=== PATIENT | male | born 1960 | race Caucasian/White ===

== ENCOUNTER 2018-03-17 19:25 | Inpatient (IN) | payer OTHER ==
[~2018-03-17] VITALS: Ht 167.6 cm; Wt 61.8 kg
[2018-03-17] MEDS ORDERED: ALBUTEROL SULFATE 2.5 MG/3 ML ONE (19:45)
[2018-03-17] MEDS ORDERED: ALBUTEROL/IPRATROPIUM 2.5MG/0.5MG, 3 ML ONE (19:45)
[2018-03-17 19:52] LABS: BASOPHILS # (AUTO) 0.03 x10^3/uL (0-0.1); BASOPHILS % (AUTO) 1 % (0-1); EOSINOPHILS # (AUTO) 0.49 x10^3/uL (0-0.4); EOSINOPHILS % (AUTO) 7 % (1-7); LYMPHOCYTES # (AUTO) 2.17 x10^3/uL (1-3.4); LYMPHOCYTES % (AUTO) 29 % (22-44); MD NO; MEAN CORPUSCULAR HEMOGLOBIN 29.1 pg (27.5-34.5); MEAN CORPUSCULAR HGB CONC 33.3 g/dL (33.2-36.2); MEAN CORPUSCULAR VOLUME 87.3 fL (81-97); MEAN PLATELET VOLUME 8.9 fL (7.4-10.4); MONOCYTES # (AUTO) 0.65 x10^3/uL (0.2-0.8); MONOCYTES % (AUTO) 9 % (2-9); NEUTROPHILS # (AUTO) 4.11 x10^3/uL (1.8-6.8); NEUTROPHILS % (AUTO) 55 % (42-75); PLATELET COUNT 331 x10^3/uL (130-400); RED BLOOD COUNT 4.36 x10^6/uL (4.38-5.82); RED CELL DISTRIBUTION WIDTH 14.7 % (9.4-14.8)
[2018-03-17 20:03] LABS: ALBUMIN 2.8 g/dL (3.4-5.0); ANION GAP 9 mmol/L (5-15); CALCIUM 7.9 mg/dL (8.5-10.1); CHLORIDE 106 mmol/L (98-107)
[2018-03-17 20:09] LABS: ALANINE AMINOTRANSFERASE 27 U/L (12-78); ALKALINE PHOSPHATASE 70 U/L (45-117); BILIRUBIN,TOTAL 0.5 mg/dL (0.2-1.0); CREATININE 0.86 mg/dL (0.7-1.3); TOTAL PROTEIN 7.3 g/dL (6.4-8.2)
[2018-03-17] MEDS ORDERED: CEFTRIAXONE PMX 1GM/50ML 50 ML IV ONE (21:30)
[2018-03-17] MEDS ORDERED: AZITHROMYCIN 500 MG in SODIUM CHLORIDE 0.9% 250 ML IV ONE (21:30)
[2018-03-17] MEDS ORDERED: CEFTRIAXONE PMX 1GM/50ML 50 ML ONE (21:31)
[2018-03-17] MEDS ORDERED: POTASSIUM CHLORIDE 20 MEQ TAB.ER.PRT PO ONE (22:30)
[2018-03-17] MEDS ORDERED: NS + 20MEQ KCL 1,000 ML IV SCH (22:40)
[2018-03-17] MEDS ORDERED: POTASSIUM CHLORIDE 20 MEQ TAB.ER.PRT ONE (22:49)
[2018-03-17] MEDS ORDERED: morphine SULFATE 10 MG/ML, 1ML IVPush PRN (23:00)
[2018-03-17] MEDS ORDERED: KETOROLAC 30 MG/1 ML IVPush ONE (23:00)
[2018-03-17] MEDS ORDERED: hydrALAzine 20 MG/ML, 1ML IVPush PRN (23:00)
[2018-03-17] MEDS ORDERED: TRAZODONE 50MG TABLET PO PRN (23:00)
[2018-03-17] MEDS ORDERED: ACETAMINOPHEN 325 MG TABLET PO PRN (23:00)
[2018-03-18] MEDS ORDERED: ALBUTEROL/IPRATROPIUM 2.5MG/0.5MG, 3 ML NPPB PRN
[2018-03-18] MEDS: GUAIFENESIN/DM 200-20MG, 10ML UDC PO PRN ×2 (00:12→08:11)
[2018-03-18] MEDS: ENOXAPARIN 40 MG/0.4 ML SQ SCH ×2 (00:12→22:27)
[2018-03-18 00:20] VITALS: BP 121/68
[2018-03-18] MEDS: LEVOFLOXACIN/PMX 750MG/150ML 150 ML IV SCH (02:12)
[2018-03-18 05:03] LABS: BASOPHILS # (AUTO) 0.05 x10^3/uL (0-0.1); BASOPHILS % (AUTO) 1 % (0-1); EOSINOPHILS # (AUTO) 0.48 x10^3/uL (0-0.4); EOSINOPHILS % (AUTO) 7 % (1-7); LYMPHOCYTES # (AUTO) 1.75 x10^3/uL (1-3.4); LYMPHOCYTES % (AUTO) 26 % (22-44); MD NO; MEAN CORPUSCULAR HEMOGLOBIN 28.9 pg (27.5-34.5); MEAN CORPUSCULAR HGB CONC 33.3 g/dL (33.2-36.2); MEAN CORPUSCULAR VOLUME 86.7 fL (81-97); MEAN PLATELET VOLUME 9.6 fL (7.4-10.4); MONOCYTES # (AUTO) 0.81 x10^3/uL (0.2-0.8); MONOCYTES % (AUTO) 12 % (2-9); NEUTROPHILS # (AUTO) 3.55 x10^3/uL (1.8-6.8); NEUTROPHILS % (AUTO) 54 % (42-75); PLATELET COUNT 325 x10^3/uL (130-400); RED BLOOD COUNT 4.04 x10^6/uL (4.38-5.82); RED CELL DISTRIBUTION WIDTH 14.9 % (9.4-14.8)
[2018-03-18 05:10] LABS: ALBUMIN 2.4 g/dL (3.4-5.0); CALCIUM 7.8 mg/dL (8.5-10.1); CHLORIDE 110 mmol/L (98-107)
[2018-03-18 05:15] LABS: ALANINE AMINOTRANSFERASE 24 U/L (12-78); ALKALINE PHOSPHATASE 59 U/L (45-117); ANION GAP 7 mmol/L (5-15); BILIRUBIN,TOTAL 0.5 mg/dL (0.2-1.0); CREATININE 0.75 mg/dL (0.7-1.3); TOTAL PROTEIN 6.6 g/dL (6.4-8.2)
[2018-03-18 07:44] VITALS: BP 119/72
[2018-03-18] MEDS: ALBUTEROL/IPRATROPIUM 2.5MG/0.5MG, 3 ML NPPB SCH ×5 (07:58→19:42)
[2018-03-18] MEDS: ACETAMINOPHEN 500 MG TABLET PO PRN ×2 (08:11→22:32)
[2018-03-18 15:18] VITALS: BP 107/67
[2018-03-18 19:10] VITALS: BP 112/76
[2018-03-19 01:10] VITALS: BP 125/68
[2018-03-19] MEDS: LEVOFLOXACIN/PMX 750MG/150ML 150 ML IV SCH (01:57)
[2018-03-19 07:33] VITALS: BP 130/80
[2018-03-19] MEDS: ALBUTEROL/IPRATROPIUM 2.5MG/0.5MG, 3 ML NPPB SCH (11:38)
[2018-03-19 13:56] VITALS: BP 109/66
[2018-03-19 19:08] VITALS: BP 124/85
[2018-03-19] MEDS: ENOXAPARIN 40 MG/0.4 ML SQ SCH (21:46)
[2018-03-20 01:15] VITALS: BP 121/80
[2018-03-20] MEDS: LEVOFLOXACIN/PMX 750MG/150ML 150 ML IV SCH (02:03)
[2018-03-20] MEDS ORDERED: LEVO750T26 PO (06:18)
[2018-03-20 07:00] VITALS: BP 117/75
[2018-03-20 08:53] VITALS: BP 121/80
[2018-03-20] MEDS ORDERED: LEVOFLOXACIN 750 MG TABLET PO SCH (09:00)
== END 2018-03-20 09:57 | disposition home or self-care (01) | DRG 871 ==
LOC: ED 21:05 → SUATTDRO 22:05 → EDIP 22:59 → 3NE 23:18 → DCLOUNGE 03-20 09:41
PROVIDERS: ADMIT Hospitalist; ATTEND Hospitalist
DX: A41.9 Sepsis, unspecified organism (principal); J15.9 Unspecified bacterial pneumonia; J96.01 Acute respiratory failure with hypoxia; E43 Unspecified severe protein-calorie malnutrition; J90 Pleural effusion, not elsewhere classified; E83.51 Hypocalcemia; F17.210 Nicotine dependence, cigarettes, uncomplicated; Z87.01 Personal history of pneumonia (recurrent); Z68.22 Body mass index [BMI] 22.0-22.9, adult; Z88.7 Allergy status to serum and vaccine; F19.11 Other psychoactive substance abuse, in remission
CPT/HCPCS: 36415; 71046; 80053; 83735; 84100; 85025; 85379; 93005; 94640; 96365; 96366; 96368; J0456; J0696; J1650; J1885; J1956; J3480; J7620; J7050